=== PATIENT | male | born 1975 | race Caucasian/White ===

== ENCOUNTER 2020-11-28 06:11 | Outpatient (REF) | payer OTHER, SELFPAY ==
[2020-11-28 11:54] LABS: Alanine Aminotransferase 27 U/L (0-40); Albumin Level 4.3 g/dL (3.5-5.0); Alkaline Phosphatase 67 U/L (39-117); Anion Gap 14 (12-20); Aspartate Amino Transferase 19 U/L (5-37); Bilirubin Total 0.6 mg/dL (0.0-1.0); Blood Urea Nitrogen 15 mg/dL (9-16); Calcium 8.9 mg/dL (8.4-10.2); Carbon Dioxide 26 mmol/L (22-29); Chloride 103 mmol/L (96-108); Cholesterol 150 mg/dL; Estimated Glomerular Filt Rate > 60; Glucose Fasting 84 mg/dL (60-99); HDL Cholesterol 49 mg/dL; LDL Cholesterol Calculated 86 mg/dl; Potassium 4.6 mmol/l (3.3-5.1); Sodium 138 mmol/L (135-145); Total Protein 7.1 g/dL (6.5-8.0); Triglycerides 77 mg/dL
[2020-11-28 12:21] LABS: TSH reflex Free T4 1.13 mIU/mL (0.32-4.0)
== END 2020-11-28 06:12 | disposition home or self-care (01) ==
LOC: HO.HMGCLDS 06:11
PROVIDERS: PCP Nurse Practitioner Family; Visit Provider Nurse Practitioner Family
DX: Z00.00 Encounter for general adult medical examination without abnormal findings (principal)
CPT/HCPCS: 36415; 80053; 80061; 84443

== ENCOUNTER 2021-11-25 06:04 | Outpatient (REF) | payer OTHER, SELFPAY ==
[2021-11-25 11:35] LABS: Appearance Urine CLEAR; Color Urine YELLOW; Glucose Urine UA NEG (NEG); Leukocyte Esterase Urine NEG (NEG); Nitrite Urine NEG (NEG); Urine Blood NEG (NEG); Urine Ketones NEG (NEG); Urine Protein NEG (NEG-TRACE)
[2021-11-25 12:08] LABS: Alanine Aminotransferase 32 U/L (0-40); Albumin Level 4.3 g/dL (3.5-5.0); Alkaline Phosphatase 71 U/L (39-117); Anion Gap 13 (12-20); Aspartate Amino Transferase 22 U/L (5-37); Bilirubin Total 0.7 mg/dL (0.0-1.0); Blood Urea Nitrogen 12 mg/dL (9-16); Calcium 9.5 mg/dL (8.4-10.2); Carbon Dioxide 26 mmol/L (22-29); Chloride 101 mmol/L (96-108); Cholesterol 139 mg/dL; Estimated Glomerular Filt Rate > 60; Glucose Fasting 90 mg/dL (60-99); HDL Cholesterol 47 mg/dL; LDL Cholesterol Calculated 77 mg/dl; Potassium 4.2 mmol/L (3.3-5.1); Sodium 136 mmol/L (135-145); Total Protein 7.4 g/dL (6.5-8.0); Triglycerides 76 mg/dL
[2021-11-25 12:10] LABS: TSH reflex Free T4 1.08 uIU/mL (0.32-4.0)
== END 2021-11-25 06:05 | disposition home or self-care (01) ==
LOC: HO.HMGCLDS 06:04
PROVIDERS: Visit Provider Nurse Practitioner Family
DX: Z00.00 Encounter for general adult medical examination without abnormal findings (principal)
CPT/HCPCS: 36415; 80053; 80061; 81003; 84443

== ENCOUNTER 2023-02-08 06:03 | Outpatient (REF) | payer OTHER, SELFPAY ==
[2023-02-08 11:15] LABS: MANUAL DIFF FLAG NO
[2023-02-08 11:51] LABS: Appearance Urine Clear; Color Urine Yellow; Glucose Urine UA Negative (Negative); Leukocyte Esterase Urine Negative (Negative); Nitrite Urine Negative (Negative); PH 6.5 (5.0-9.0); Specific Gravity - Urine 1.015 (1.005-1.025); Urine Blood Negative (Negative); Urine Ketones Negative (Negative); Urine Protein Negative (Neg-Trace)
[2023-02-08 11:57] LABS: Basophils Percent Auto 0.6 % (0-2); Eosinophils Absolute Auto 0.1 X10*3/uL (0.0-0.4); Eosinophils Percent Auto 2.1 % (0-4); Hematocrit 47.3 % (42.0-52.0); Lymphocytes Absolute Auto 1.5 X10*3/uL (1.2-4.9); Lymphocytes Percent Auto 43.5 % (20-40); Mean Corpuscular HGB Conc 33.8 g/dl (31.0-36.0); Mean Corpuscular Hemoglobin 31.7 pg (27.0-33.0); Mean Corpuscular Volume 93.7 fL (80.0-98.0); Mean Platelet Volume 10.1 fL (9.4-12.4); Monocytes Absolute Auto 0.4 X10*3/uL (0.1-1.2); Monocytes Percent Auto 10.6 % (2-11); Neutrophils Absolute Auto 1.5 x10*3/uL (2.0-8.3); Neutrophils Percent Auto 43.2 % (45-73); Platelet Count 174 X10*3/uL (160-400); Red Blood Count 5.05 X10*6/uL (4.60-5.80); Red Cell Distribution Width 12.2 % (11.0-16.0); White Blood Count 3.4 X10*3/uL (4.8-10.8)
[2023-02-08 12:20] LABS: Alanine Aminotransferase 30 U/L (0-40); Albumin Level 4.4 g/dL (3.5-5.0); Alkaline Phosphatase 70 U/L (39-117); Anion Gap 13 (12-20); Aspartate Amino Transferase 21 U/L (5-37); Bilirubin Total 1.2 mg/dL (0.0-1.0); Blood Urea Nitrogen 17 mg/dL (9-16); Calcium 9.2 mg/dL (8.4-10.2); Carbon Dioxide 26 mmol/L (22-29); Chloride 101 mmol/L (96-108); Cholesterol 174 mg/dL; Estimated Glomerular Filt Rate > 60; Glucose Fasting 92 mg/dL (60-99); HDL Cholesterol 54 mg/dL; LDL Cholesterol Calculated 96 mg/dl; Potassium 4.3 mmol/L (3.3-5.1); Sodium 136 mmol/L (135-145); TSH reflex Free T4 1.11 uIU/mL (0.32-4.0); Total Protein 7.1 g/dL (6.5-8.0); Triglycerides 120 mg/dL
== END 2023-02-08 06:04 | disposition home or self-care (01) ==
LOC: HO.HMGCLDS 06:03
PROVIDERS: PCP Nurse Practitioner Family; Visit Provider Nurse Practitioner Family
DX: Z00.00 Encounter for general adult medical examination without abnormal findings (principal)
CPT/HCPCS: 36415; 80053; 80061; 81003; 84443; 85025

== ENCOUNTER 2024-02-01 14:51 | Outpatient (AMB) | payer OTHER, SELFPAY ==
[2024-02-01 14:51] VITALS: BP 130/78; PULSE 82; O2SAT 97; BMI 28.4
--- NOTE | 2024-02-01 14:51 | A.OFFPC_ITS ---
Vital Signs 02/01/24 14:51 Height 6 ft 2 in Weight 221 lb BMI 28.4 BP 130/78 Blood Pressure Location Lt brachial Position Sitting Pulse 82 Pulse Source Pulse Oximeter Pulse Oximetry (%) 97 Oxygen Delivery Method Room Air Intake Visit Reasons: Annual PE Intake Note: pt is here for annual exam, patient had colonoscopy t [facility], needs repeat colonoscopy in 10 years. 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: No Accompanied by: Self / Same As Patient Allergies No Known Allergies [No Known Allergies*] Allergy (Verified 02/01/24 15:05) Medication List - Last Reconciled 02/01/24 by DARWIN Talbert ascorbic acid (vitamin C) (Vitamin C) 500 mg PO DAILY magnesium 200 mg PO DAILY multivitamin 1 tab PO DAILY Tobacco use date assessed: 02/01/24 Dental Screening Dental Screen Date: 02/01/24 Did you have a dental visit in the last 12 months?: Yes Did you have a dental problem in the last 6 months where you did not have access to dental care?: No Was dental information given to patient?: Patient has dentist HPI Annual PE HPI Details Pt is here for a PE. Will order labs. Pt had a colonoscopy in August of 2023. Will track down report. [facility] Medical History Lumbar degenerative disc disease Lumbar radiculopathy Surgical History No pertinent past surgical history Family History Father Myocardial infarction Mother Diabetes mellitus Brother No problems noted. Sister No problems noted. Social History Housing: House Alcohol intake: current Alcohol intake frequency: 0-2 drinks per day Alcohol type: beer and hard liquor Patient Tobacco Use Status: Former Tobacco user (6 months ago ) Tobacco use type: Cigarette e-Cigarette/Vaping Use: Never Used Second Hand Smoke Exposure: No service: No Current occupational status: employed Current occupation: [employer] Current occupational exposures/hazards: No Cognitive needs: No Hearing needs: No Vision needs: No Questionnaire PHQ-9 Over the last 2 weeks, how often have you been bothered by any of the following problems? 1. Little interest or pleasure in doing things: not at all 2. Feeling down, depressed, or hopeless: not at all 3. Trouble falling or staying asleep, or sleeping too much: not at all 4. Feeling tired or having little energy: not at all 5. Poor appetite or overeating: not at all 6. Feeling bad about yourself - or that you are a failure or have let yourself or your family down: not at all 7. Trouble concentrating on things, such as reading the newspaper or watching television: not at all 8. Moving or speaking so slowly that other people could have noticed. Or the opposite - being so fidgety or restless that you have been moving around a lot more than usual: not at all 9. Thoughts that you would be better off or of hurting yourself in some way: not at all Total score: 0 Depression Screening Interpretation: Negative Depression Screening Done: Yes 85025 - PHQ-9 Billing: Yes Source: Developed by Drs. Lit Lombardi, Nimo Dougherty, Sanford Herman and colleagues, with an educational nora from [employer]. Thrive Questionnaire Date Thrive assessed: 02/01/24 I am a: Patient What is your living situation today?: I have a steady place to live Within the past 12 months, did the food you bought not last and you didn't have the money to get more?: Never true Within the past 12 months, did you worry whether your food would run out before you got money to buy more?: Never true Do you have trouble paying for medicines?: No Do you have trouble getting transportation to medical appointments?: No Do you have trouble paying your heating and electricity bill?: No Do you have trouble taking care of your child, family member or friend?: No Do you have trouble with day-to-day activities such as bathing, preparing meals, shopping, managing finances, etc.?: No Are you currently unemployed and looking for a job?: No Are you interested in more education?: No Please select the resources that you would like help with: None Currently or been in a relationship where the following occur: no concerns reported THRIVE Score: 0 AUDIT C Alcohol Use Questionnaire (AUDIT-C) 1. How often do you have a drink containing alcohol?: 2-3 times a week 2. How many drinks containing alcohol do you have on a typical day when you are drinking?: 1 or 2 3. How often do you have six or more drinks on one occasion?: Never Total Score: 3 Score Reviewed/Action Taken: Yes ROSA-7 AMB Questionnaire ROSA-7 Date ROSA - 7 assessed: 02/01/24 Feeling nervous, anxious, or on edge: 0 = Not at all Not being able to stop or control worryin = Not at all Worrying too much about different things: 0 = Not at all Trouble relaxin = Not at all Being so restless that it is hard to sit still: 0 = Not at all Becoming easily annoyed or irritable: 0 = Not at all Feeling afraid as if something awful might happen: 0 = Not at all Total ROSA-7 score (0-4 normal; 5-9 mild; 10-14 moderate; 15-21 severe): 0 Source: Developed by Drs. Lit Lombardi, Nimo Dougherty, Sanford Herman and colleagues, with an educational nora from [employer]. ROSA-7 Assessment Billing ROSA-7 Assessment Tool: ROSA-7 Assessment 72778 Review of Systems Const Denies chills and Denies fever(s) Eyes Denies blurry vision ENT Denies vertigo, Denies dizziness and Denies sore throat Card Denies chest pain at rest, Denies chest pain with activity, Denies diaphoresis, Denies dyspnea and Denies dyspnea on exertion Resp Denies cough, Denies dyspnea, Denies dyspnea on exertion and Denies wheezing GI Denies abdominal pain, Denies melena, Denies hematochezia, Denies constipation, Denies diarrhea and Denies loose stools Denies hematuria Musc Denies numbness and Denies tingling Skin/Breast Denies lesions Neuro Denies vertigo, Denies dizziness, Denies numbness and Denies tingling Psych Denies anxiety, Denies depression, Denies homicidal ideation, Denies suicidal ideation and Denies other (substance abuse) Aller/Immun Denies wheezing Physical exam (Primary Care) Vital Signs: Last Vital Signs Pulse 82 02/01/24 14:51 BP 130/78 02/01/24 14:51 Pulse Ox 97 02/01/24 14:51 Oxygen Delivery Method Room Air 02/01/24 14:51 BMI result Body Mass Index 28.4 Tobacco/Smoking Status: Tobacco use Status Tobacco use date assessed 02/01/24 02/01/24 14:52 Patient Tobacco Use Status Former Tobacco user (6 02/01/24 14:52 months ago ) Tobacco use type Cigarette 02/01/24 14:52 e-Cigarette/Vaping Use Never Used 02/01/24 14:52 PHQ-9: PHQ-9 Score PHQ-9: Total score 0 02/01/24 15:14 Depression Screening Interpretation: Negative Thrive Assessment: Date of Thrive Assessment Date Thrive assessed 02/01/24 02/01/24 14:52 Currently or been in a relationship where the following occur: no concerns reported Const General: cooperative Nutritional Appearance: well nourished Orientation/consciousness: patient oriented x3 HENMT Head: Yes normal to inspection, Yes normocephalic and Yes atraumatic Ears: TM's normal bilaterally Eyes General: appearance normal, both eyes and all related structures Alignment and Position: alignment normal and position normal Neck Neck: Yes normal visual inspection and Yes no lymphadenopathy Thyroid: Thyroid normal Resp Effort & Inspection: normal respiratory effort Auscultation: clear to auscultation bilaterally Cardio Rate: regular rate Rhythm: regular rhythm Heart sounds: S1 normal heart sound present, S2 normal heart sound present and no murmurs GI Palpation (GI): Soft to palpation and nontender Auscultation: normal bowel sounds Male General Exam: Yes normal external exam Penis: normal penis Scrotum: scrotum normal, testes descended bilaterally and no inguinal hernias Testes: no testicular mass Skin Other: left upper temporal region with skin colored growth Rashes: no rashes Neuro General: patient oriented x3, moves all extremities, no focal motor deficits and deep tendon reflexes 2+ bilaterally Romberg Test: Negative Psych Appearance: grossly normal Mental Status: mental status grossly normal Speech and movement: Normal speech and movement present Affect: normal affect Attitude: cooperative Thought process: Normal thought process present Thought content: Normal thought content present Insight: Good insight present (Psych) Judgement: Good judgement present (Psych) Assessment and Plan Assessment & Plan (1) Physical exam: Code(s): Z00.00 - Encounter for general adult medical examination without abnormal findi ngs Plan: Labs ordered Plan The patient agreed to the use of a faculty i on call medical assistant for this encounter. Scribed for DARWIN Peterson by Mirlande Short faculty i on call medical assistant, on 02/01/2024 at 15:05 EST. Orders: Orders TSH reflex Free T4 Today Z00.00 - Encounter for general adult medical examination without abnormal findings Complete Blood Count Auto Diff Today Z00.00 - Encounter for general adult medical examination without abnormal findings Comprehensive [place]. Panel Fast Today Z00.00 - Encounter for general adult medical examination without abnormal findings UA CC w/rflx Micro + Cult Today Z00.00 - Encounter for general adult medical examination without abnormal findings Lipid Panel Today Z00.00 - Encounter for general adult medical examination without abnormal findings Coding Level of Care Code Est Pt Prev Care 40-64y(39133) Diagnoses Physical exam Z00.00 Additional Codes ROSA-7 Assessment Billing - ROSA-7 Assessment Tool: RSOA-7 Assessment 97935 ([id number])
== END 2024-02-01 15:12 | disposition home or self-care (01) ==
PROVIDERS: Visit Provider Nurse Practitioner Family
DX: Z00.00 Encounter for general adult medical examination without abnormal findings (principal)
CPT/HCPCS: 99396

== ENCOUNTER 2024-02-03 06:06 | Outpatient (REF) | payer OTHER, SELFPAY ==
[2024-02-03 10:08] LABS: MANUAL DIFF FLAG NO
[2024-02-03 10:20] LABS: Appearance Urine Clear; Color Urine Yellow; Glucose Urine UA Negative (Negative); Leukocyte Esterase Urine Negative (Negative); Nitrite Urine Negative (Negative); Urine Blood Negative (Negative); Urine Ketones Negative (Negative); Urine Protein Negative (Neg-Trace)
[2024-02-03 10:32] LABS: Basophils Percent Auto 0.7 % (0-2); Eosinophils Absolute Auto 0.1 X10*3/uL (0.0-0.4); Eosinophils Percent Auto 2.1 % (0-4); Hematocrit 46.9 % (42.0-52.0); Hemoglobin 16.3 g/dl (14.0-18.0); Lymphocytes Absolute Auto 1.4 X10*3/uL (1.2-4.9); Lymphocytes Percent Auto 46.2 % (20-40); Mean Corpuscular HGB Conc 34.8 g/dl (31.0-36.0); Mean Corpuscular Volume 92.1 fL (80.0-98.0); Mean Platelet Volume 9.9 fL (9.4-12.4); Monocytes Absolute Auto 0.4 X10*3/uL (0.1-1.2); Neutrophils Absolute Auto 1.1 x10*3/uL (2.0-8.3); Platelet Count 180 X10*3/uL (160-400); Red Blood Count 5.09 X10*6/uL (4.60-5.80); Red Cell Distribution Width 12.3 % (11.0-16.0); White Blood Count 2.9 X10*3/uL (4.8-10.8)
[2024-02-03 11:06] LABS: Alanine Aminotransferase 24 U/L (0-40); Albumin Level 4.4 g/dL (3.5-5.0); Alkaline Phosphatase 73 U/L (39-117); Anion Gap 12 (12-20); Aspartate Amino Transferase 20 U/L (5-37); Bilirubin Total 0.8 mg/dL (0.0-1.0); Blood Urea Nitrogen 12 mg/dL (9-16); Calcium 9.2 mg/dL (8.4-10.2); Carbon Dioxide 25 mmol/L (22-29); Chloride 100 mmol/L (96-108); Cholesterol 152 mg/dL (<200); Estimated Glomerular Filt Rate > 60; Glucose Fasting 88 mg/dL (60-99); HDL Cholesterol 53 mg/dL (>40); LDL Cholesterol Calculated 82 mg/dL (<100); Potassium 4.2 mmol/L (3.3-5.1); Sodium 133 mmol/L (135-145); Total Protein 7.5 g/dL (6.5-8.0); Triglycerides 86 mg/dL (<150)
== END 2024-02-03 06:07 | disposition home or self-care (01) ==
LOC: HO.HMGCLDS 06:06
PROVIDERS: PCP Nurse Practitioner Family; Visit Provider Nurse Practitioner Family
DX: Z00.00 Encounter for general adult medical examination without abnormal findings (principal); Z13.6 Encounter for screening for cardiovascular disorders
CPT/HCPCS: 36415; 80053; 80061; 81003; 84443; 85025

== ENCOUNTER 2025-03-08 15:51 | Outpatient (AMB) | payer OTHER, SELFPAY ==
--- NOTE | 2025-03-08 15:55 | MHC.PC.OV ---
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 Accompanied by: Self / Same As Patient Allergies No Known Allergies [No Known Allergies*] Allergy (Verified 03/08/25 15:58) Medication List - Last Reconciled 03/08/25 by DARWIN Talbert ascorbic acid (vitamin C) (Vitamin C) 500 mg PO DAILY magnesium 200 mg PO DAILY multivitamin 1 tab PO DAILY Tobacco use date assessed: 03/08/25 Dental Screening Dental Screen Date: 03/08/25 Did you have a dental visit in the last 12 months?: Yes Did you have a dental problem in the last 6 months where you did not have access to dental care?: No Was dental information given to patient?: Patient has dentist HPI Annual PE - see comments HPI Details History of Present Illness The patient is a 49-year-old male presenting with a request for a physical examination. He denied any symptoms typically associated with respiratory or urinary infections, as well as gastrointestinal disturbances. Furthermore, he reported a good overall health perception. Specific details regarding previous conditions or ongoing treatment were not mentioned. He acknowledged the requirement to fast prior to completing laboratory tests, with no further elaboration on prior medical evaluations or treatment history provided during this visit. Health Maintenance Social History Review of Systems - Cardiovascular: Denies chest pain - Respiratory: Denies shortness of breath - General: Denies fever and chills - Genitourinary: Denies urinary symptoms - Gastrointestinal: Denies constipation and diarrhea Physical Exam General: Cooperative, healthy appearing, comfortable, no acute distress and well developed Orientation: Patient oriented x3 Limitations: No limitations Head: Normal to inspection Ears: Hearing grossly normal bilaterally Nose: Normal external nose present Face and sinus: Normal facial exam Eyes: Appearance normal, both eyes and all related structures Neck: Normal visual inspection and Yes full ROM Respiratory: Normal respiratory effort and able to speak in complete sentences. Clear to auscultation bilaterally Cardiovascular: Regular rate and rhythm. Normal S1 and S2 GI: Normal to inspection. Soft to palpation and nontender Skin: No rashes or lesions noted Neuro: Patient oriented x3 Extremities: Normal to inspection Results Plan The patient will proceed with fasting as required for the laboratory tests previously ordered. The conversation focused solely on the examination and the necessity of adherence to fasting instructions to facilitate correct lab results. No additional treatment, diagnostics, or specific follow-ups were outlined during the consultation. Discussion Notes During our discussion, I emphasized the importance of fasting prior to the laboratory tests for accurate evaluation. No specific diagnoses, risks, benefits, or future procedures were discussed beyond the standard wellness evaluation. We focused on ensuring the patient understands the fasting requirement, and no consent issues or comprehensive management discussions were necessary as the visit was primarily for routine evaluation. Patient Instructions - Fast for the laboratory tests as instructed. - Follow up with appointments or health checks according to previous instructions, if applicable. [facility] Medical History Lumbar degenerative disc disease Lumbar radiculopathy Surgical History No pertinent past surgical history Family History Father Myocardial infarction Mother Diabetes mellitus Brother No problems noted. Sister No problems noted. Social History Housing: House Alcohol intake: current Alcohol intake frequency: 0-2 drinks per day Alcohol type: beer and hard liquor Patient Tobacco Use Status: Former Tobacco user (6 months ago ) Tobacco use type: Cigarette e-Cigarette/Vaping Use: Never Used Second Hand Smoke Exposure: No service: No Current occupational status: employed Current occupation: [employer] Current occupational exposures/hazards: No Cognitive needs: No Hearing needs: No Vision needs: No Questionnaire PHQ-9 Over the last 2 weeks, how often have you been bothered by any of the following problems? 1. Little interest or pleasure in doing things: not at all 2. Feeling down, depressed, or hopeless: not at all 3. Trouble falling or staying asleep, or sleeping too much: not at all 4. Feeling tired or having little energy: not at all 5. Poor appetite or overeating: not at all 6. Feeling bad about yourself - or that you are a failure or have let yourself or your family down: not at all 7. Trouble concentrating on things, such as reading the newspaper or watching television: not at all 8. Moving or speaking so slowly that other people could have noticed. Or the opposite - being so fidgety or restless that you have been moving around a lot more than usual: not at all 9. Thoughts that you would be better off or of hurting yourself in some way: not at all Total score: 0 Depression Screening Interpretation: Negative Depression Screening Done: Yes 82859 - PHQ-9 Billing: Yes Source: Developed by Drs. Lit Lombardi, Nimo Dougherty, Sanford Herman and colleagues, with an educational nora from [employer]. Thrive Questionnaire Date Thrive assessed: 03/08/25 I am a: Patient What is your living situation today?: I have a steady place to live Within the past 12 months, did the food you bought not last and you didn't have the money to get more?: Never true Within the past 12 months, did you worry whether your food would run out before you got money to buy more?: Never true Do you have trouble paying for medicines?: No Do you have trouble getting transportation to medical appointments?: No Do you have trouble paying your heating and electricity bill?: No Do you have trouble taking care of your child, family member or friend?: No Do you have trouble with day-to-day activities such as bathing, preparing meals, shopping, managing finances, etc.?: No Are you currently unemployed and looking for a job?: No Are you interested in more education?: No Please select the resources that you would like help with: None Currently or been in a relationship where the following occur: No concerns reported THRIVE Score: 0 AUDIT C Alcohol Use Questionnaire (AUDIT-C) 1. How often do you have a drink containing alcohol?: 2-3 times a week 2. How many drinks containing alcohol do you have on a typical day when you are drinking?: 1 or 2 3. How often do you have six or more drinks on one occasion?: Never Total Score: 3 Score Reviewed/Action Taken: Yes ROSA-7 AMB Questionnaire ROSA-7 Date ROSA - 7 assessed: 03/08/25 Feeling nervous, anxious, or on edge: 0 = Not at all Not being able to stop or control worryin = Not at all Worrying too much about different things: 0 = Not at all Trouble relaxin = Not at all Being so restless that it is hard to sit still: 0 = Not at all Becoming easily annoyed or irritable: 0 = Not at all Feeling afraid as if something awful might happen: 0 = Not at all Total ROSA-7 score (0-4 normal; 5-9 mild; 10-14 moderate; 15-21 severe): 0 Source: Developed by Drs. Lit Lombardi, Nimo Dougherty, Sanford Herman and colleagues, with an educational nora from [employer]. ROSA-7 Assessment Billing ROSA-7 Assessment Tool: ROSA-7 Assessment 26989 Physical exam (Primary Care) Vital Signs: Last Vital Signs Pulse 86 03/08/25 15:58 BP 130/76 03/08/25 15:58 Pulse Ox 98 03/08/25 15:58 BMI result Body Mass Index 28.8 Tobacco/Smoking Status: Tobacco use Status Tobacco use date assessed 03/08/25 03/08/25 16:01 Patient Tobacco Use Status Former Tobacco user (6 03/08/25 15:55 months ago ) Tobacco use type Cigarette 03/08/25 15:55 e-Cigarette/Vaping Use Never Used 03/08/25 15:55 PHQ-9: PHQ-9 Score PHQ-9: Total score 0 03/08/25 16:01 Depression Screening Interpretation: Negative Thrive Assessment: Date of Thrive Assessment Date Thrive assessed 03/08/25 03/08/25 16:01 Currently or been in a relationship where the following occur: No concerns reported Coding Level of Care Code Est Pt Prev Care 40-64y(13255) Diagnoses Physical exam Z00.00 Screening for prostate cancer Z12.5 Additional Codes ROSA-7 Assessment Billing - ROSA-7 Assessment Tool: ROSA-7 Assessment 23517 ([id number]) PHQ-9 - 44894 - PHQ-9 Billing: Yes ([id number]) Assessment & Plan Assessment & Plan (1) Physical exam: Code(s): Z00.00 - Encounter for general adult medical examination without abnormal findings Category: Medical (2) Screening for prostate cancer: Code(s): Z12.5 - Encounter for screening for malignant neoplasm of prostate Category: Medical Plan . Orders: Orders TSH reflex Free T4 Today Z00.00 - Encounter for general adult medical examination without abnormal findings Complete Blood Count Auto Diff Today Z00.00 - Encounter for general adult medical examination without abnormal findings Comprehensive [place]. Panel Fast Today Z00.00 - Encounter for general adult medical examination without abnormal findings UA CC w/rflx Micro + Cult Today Z00.00 - Encounter for general adult medical examination without abnormal findings Lipid Panel Today Z00.00 - Encounter for general adult medical examination without abnormal findings Prostate Specific Antigen Scr Today Z12.5 - Encounter for screening for malignant neoplasm of prostate
[2025-03-08 15:58] VITALS: BP 130/76; PULSE 86; O2SAT 98; BMI 28.8
--- OUTSIDE RECORDS SUMMARY | 2025-03-08 17:25 | XMS_ITS | Encounter Summary ---
Author Organization [facility] Address [address] [place] [phone] Phone Care Team Providers Care Child Support Officer Name Role Phone Unknown, Unknown Primary Care Provider Carlos Monroe MD Primary Care Provider [phone] Kwan Ralph NP Primary Care Provider + Reason for Referral * - Closed Specialty Diagnoses / Procedures Referred By Allison diaz Referred To Contact Diagnoses Right ankle swelling Chronic pain of right ankle Procedures NM Bone Flow 3 Phase Patrizia Messina NP [address] [place] [phone] Referral ID Status Reason Start Date Expiration Date Visits Re quested Visits Authorized [id number] Closed 08/25/2018 08/25/2019 1 1 Encounter Details Date Type Department Care Team (Late st Contact Info) Description 08/24/2018 Ancillary Orders Virtual Department [address] [place] [address] Patrizia Messina NP [address] [place] [phone] [email or web address] [employer] Right ankle swelling; Chronic pain of right ankle Social History Tobacco Use Types Packs/Day Years Used Date Smoking Tobacco: Never Assessed Sex and Gender Information Value Date Recorded Sex Assigned at Not on file Gender Identity Not on file Sexual Orientation Not on file documented as of this encounter Plan of Treatment Not on file documented as of this encounter Results * NM Bone Flow 3 Phase (08/29/2018 1:16 PM EDT) Anatomical Region Laterality Modality Shoulder Right, Shoulder Lef t, Arm Left, Arm Right, Elbow Left, Elbow Right, Forearm Left, Forearm Right, Wrist Right, Wrist Left, Hand Left, Hand Right, Hip Left, Hip Right, Hip Bilateral, Thigh Left, Thigh Right, Knee Left, Knee Right, Knee Bilateral, Leg Left, Leg Right, Ankle Left, Ankle Right, Foot Left, Foot Right, Pelvis Nucle ar Medicine 08/29/2018 3:45 PM EDT Impressions 08/29/2018 5:21 PM EDT Increased activity lateral ankle on all 3 phases, more so on the blood pool than on the delayed bone scan. This suggests a primary soft tissue/tendon pathology, specifically peroneal tendinitis. POS [id number] Narrative 08/29/2018 5:21 PM EDT HISTORY: Lateral right ankle pain x2 years. No recent acute injury. No known malignancy or prior bone surgery. X-ray demonstrated soft tissue swelling 06/2018. COMPARISON: ??None. The prior x-rays are not available for review. Technique: Standard three-phase bone scan with blood flow, blood pool and delayed phase imaging. DOSE: ??26 mCi Tc 99m medronate IV. NUCLEAR MEDICINE THREE PHASE BONE SCAN FINDINGS: Blood flow images demonstrate increased blood flow to the right lateral ankle. Blood pool images demonstrate increased blood flow adjacent to the right fibula. It is in a crescentic shape and would correspond anatomically to the course of the peroneal tendons. ??Mild increased blood flow to the midfoot of both feet. Delayed phase images show focal increased uptake in the distal fibula, with the bone scan activity smaller in size and not as hot as the blood pool activity. Symmetric increased uptake within the mid foot tarsal bones, which is characteristically degenerative. Procedure Note Marian Praikh MD - 08/29/2018 HISTORY: Lateral right ankle pain x2 years. No recent acute injury. Noknown malignancy or prior bone surgery. X-ray demonstrated soft tissueswelling 06/2018. COMPARISON: None. The prior x-rays are not available for review. Technique: Standard three-phase bone scan with blood flow, blood pool anddelayed phase imaging. DOSE: 26 mCi Tc 99m medronate IV. NUCLEAR MEDICINE THREE PHASE BONE SCAN FINDINGS: Blood flow images demonstrate increased blood flow to the right lateralankle. Blood pool images demonstrate increased blood flow adjacent to the rightfibula. It is in a crescentic shape and would correspond anatomically tothe course of the peroneal tendons. Mild increased blood flow to themidfoot of both feet. Delayed phase images show focal increased uptake in the distal fibula,with the bone scan activity smaller in size and not as hot as the bloodpool activity. Symmetric increased uptake within the mid foot tarsal bones, which ischaracteristically degenerative. IMPRESSION: Increased activity lateral ankle on all 3 phases, more so on the bloodpool than on the delayed bone scan. This suggests a primary softtissue/tendon pathology, specifically peroneal tendinitis. POS [id number] Patrizia Messina NP IMG NM BONE SCAN documented in this encounter Visit Diagnoses Diagnosis Right ankle swelling Effusion of ankle and foot joint Chronic pain of right ankle Right ankle swelling Effusion of ankle and foot joint Chronic pain of right ankle documented in this encounter Care Teams Child Support Officer Relationship Specialty Start Date End Date Unknown, Unknown, PCP - General 08/24/18 08/28/18 Carlos Jovel MD [email or web address] PCP - General Internal Medicine 08/29/18 02/01/23 Kwan Ralph NP [address] [place] [id number] PCP - General Nurse Practitioner 02/02/23 documented as of this encounter Additional Source Comments The information contained in this document represents components of the legal health record. It is not the complete legal health record.[facility]
--- OUTSIDE RECORDS SUMMARY | 2025-03-08 17:25 | XMS_ITS | Clinical Summary ---
Author Organization [facility] Address [address] [place] [phone] Phone Care Team Providers Care Tearer Name Role Phone Kwan Ralph NP Primary Care Provider + Allergies No known active allergies Medications Medication Sig Dispensed Refills Start Date End Date Status multivitamin-minerals- lutein (CENTRUM SILVER) Tab Take 1 tablet by mouth daily. Active naproxen sodium (ALEVE) 220 MG tablet Take 220 mg by mouth 2 (two) times a day with meals. Active Active Problems Problem Noted Date Diagnosed Date Asthma 05/03/2023 05/03/2023 Healthy adult 05/03/2023 05/03/2023 Migraine without aura and responsive to treatmen t 05/03/2023 05/03/2023 Family History Medical History Relation Comments CV disease Father 2 Hypertension Father 2 Diabetes mellitus Mother 2 Relation Status Comments Father 1 Alive Father 2 Mother 1 Alive Mother 2 Social History Tobacco Use Types Packs/Day Years Used Date Smoking Tobacco: Former Cigarettes 0 11/08/2020 - 11/08/2022 Smokeless Tobacco: Never Tobacco Cessation:Counseling Given: Not Answered Alcohol Use Standard Drinks/Week Comments Yes 14 (1 standard drink = 0.6 oz pu re alcohol) 2 per day Education Answer Date Recorded Are you interested in more education? Not on guadalupe e 03/05/2023 Are you concerned about learning? Not on file 03/05/2023 No 03/05/2023 No 03/05/2023 Digital Access Answer Date Recorded No 04/05/2023 No 04/05/2023 Reliable internet access at home? Not on file 04/05/2023 Device with a working camera? Not on file Intimate Partner Violence Answer Date R ecorded Are you denied basic needs s uch as food, clothing, or medical care? No 08/20/2023 In the past 12 months have y ou been in a relationship with a person who hurts, threatens, or tries to control you? No 08/20/2023 Are you denied basic needs s uch as food, clothing, or medical care? No 08/20/2023 In the past 12 months have y ou been in a relationship with a person who hurts, threatens, or tries to control you? No 08/20/2023 Sex and Gender Information Value Date Recorded Sex Assigned at Not on file Gender Identity Not on file Sexual Orientation Not on file Last Filed Vital Signs Vital Sign Reading Time Taken Comments Blood Pressure 129/93 08/20/2023 8:16 AM EDT Pulse 65 08/20/2023 8:16 AM EDT Temperature 36.8 ??C (98.2 ??F) 08/20/2023 8:05 AM ED T Respiratory Rate 20 08/20/2023 8:16 AM EDT Oxygen Saturation 98% 08/20/2023 8:16 AM EDT Inhaled Oxygen Concentration - - Weight 97.5 kg (215 lb) 08/19/2023 12:00 PM EDT Height 188 cm (6' 2 ) 08/19/2023 12:00 PM EDT Body Mass Index 27.6 08/19/2023 12:00 PM EDT Plan of Treatment Health Maintenance Due Date Last Done Comments DEPRESSION SCREENING 1988 SMOKING Hx and SMOKELESS TOB ACCO SCREENING 1989 HEPATITIS C SCREENING 1994 HIV ONE-TIME SCREENING (18-6 5 YEARS) 1994 PNEUMOCOCCAL VACCINES (0-49 years) (1 of 2 - PCV) 1995 SCREENING FOR DIABETES 2011 LIPID PANEL 10/16/2020 10/16/2015 COLOGUARD 2021 FIT TEST 2021 FOBT 2021 SIGMOIDOSCOPY 2021 VIRTUAL COLONOSCOPY 2021 INFLUENZA VACCINE (#1) 2024 COVID-19 VACCINE (1 - 2023-2 5 season) 2024 Adult Td,Tdap Booster 10/19/2026 10/19/2016 COLONOSCOPY 08/20/2033 08/20/2023 COLORECTAL CANCER SCREENING 08/20/2033 HEPATITIS A VACCINES Aged Out No long er eligible based on patient's age to complete this topic HIB VACCINES Aged Out No longer eligi ble based on patient's age to complete this topic MENINGOCOCCAL VACCINES (ACWY) Aged Out No longer eligible based on patient's age to complete this topic Medical Devices Not on file Procedures Procedure Name Priority Date/Time Associated Diagnosis Comments ENDOSCOPY, COLON 08/20/2023 7:27 AM EDT OUTSIDE LDL Routine 10/16/2015 from Last 3 Months or Most Recently Relevant to Health Maintenance Results * ENDOSCOPY, COLON (08/20/2023 7:27 AM EDT) Narrative Transcriptions Kathy Melendez MD - 08/20/2023 7:27 AM EDT [facility] Patient Name: Farhat Platt Attending MD:: KATHY MELENDEZ MD, Procedure Date: 08/20/2023 7:27 AM Date of : 1975 Age: 48 Admit Type: Outpatient Gender: Male Room: [facility] Referring MD: Kwan Ralph Exam Type: Colonoscopy Indications: Screening for colorectal malignant neoplasm Medications: Monitored Anesthesia Care Procedure: Informed consent was obtained from the patientafter discussion of the indications, limitations, alternatives, benefits, and risks of the procedure. Risks specifically discussed include but are not limited to medication reactions, missed lesions, bleeding, perforation, or the need for emergent surgery. Throughout the procedure, the patient's blood pressure, pulse, end-tidal CO2, and oxygensaturations were monitored continuously. The Olympus adult variable colonoscope [id number] #[id number] was introduced through the anus and advanced to the cecum, identified by the appendiceal orifice, ICvalve and transillumination. The colonoscopy wasperformed without difficulty. The patient tolerated the procedure well. The quality of the bowelpreparation was good. Complications: No immediate complications. Estimated blood loss: Minimal. Findings: The perianal and digital rectal examinations were normal. Pertinent negatives include normal prostate (size, shape, and consistency). The entire examined colon appeared normal on direct and retroflexion views. Impression: - The entire examined colon is normal on direct and retroflexion views. - No specimens collected. Recommendation: - Discharge patient to home. - Resume previous diet. - Continue present medications. - Repeat colonoscopy in 10 years for screening purposes. - Return to my office in 10 years. KATHY MELENDEZ MD 08/20/2023 8:04:42 AM This report has been signed electronically. Number of Addenda: 0 Note Initiated On: 08/20/2023 7:27 AM Procedure Code(s): --- Professional --- 40609, Colonoscopy, flexible; diagnostic, including collection of specimen(s) by brushing or washing, when performed (separateprocedure) --- Technical --- 87094, Colonoscopy, flexible; diagnostic, including collection of specimen(s) by brushing or washing, when performed (separateprocedure) Diagnosis Code(s): --- Professional --- Z12.11, Encounter for screening for malignantneoplasm of colon --- Technical --- Z12.11, Encounter for screening for malignantneoplasm of colon CPT copyright 2021 [employer]. All rights reserved. The codes documented in this report are preliminary and upon public health officer reviewmay be revised to meet current compliance requirements. Procedure Date: 08/20/2023 7:27:[address] [place] [address] Kwan Ralph NP GI PROCEDURE ORD ERABLES * Outside LDL (10/16/2015) LDL - External 80 50 - 250 mg/ml Historical Provider LAB BLOOD ORDERAB LES from Last 3 Months or Most Recently Relevant to Health Maintenance Care Teams Tearer Relationship Specialty Start Date End Date Kwan Ralph NP [address] [place] [address] PCP - General Nurse Practitioner 02/02/23 Additional Source Comments The information contained in this document represents components of the legal health record. It is not the complete legal health record.[facility]
--- OUTSIDE RECORDS SUMMARY | 2025-03-08 17:25 | XMS_ITS | Encounter Summary ---
Author Organization [facility] Address [address] [place] [address] Phone Care Team Providers Care Network Technology Instructor Name Role Phone Kwan Ralph SIGNAL OPERATOR TECHNICAL Primary Care Provider + Encounter Details Date Type Department Care Team (Late st Contact Info) Description 08/20/2023 Procedure Pass [facility] Endoscopy Admitting Dept Virtual Department [address] [place] [address] Social History Tobacco Use Types Packs/Day Years Used Date Smoking Tobacco: Former Cigarettes 0 11/08/2020 - 11/08/2022 Smokeless Tobacco: Never Alcohol Use Standard Drinks/Week Comments Yes 14 [...] on file documented as of this encounter Visit Diagnoses Not on filedocumented in this encounter Care Teams Network Technology Instructor Relationship Specialty Start Date End Date Kwan Ralph NP [address] [place] [address] PCP - General Nurse Practitioner 02/02/23 documented as of this encounter Additional Source Comments The information contained in this document represents components of the legal health record. It is not the complete legal health record.[facility]
== END 2025-03-08 16:13 | disposition home or self-care (01) ==
LOC: HO.HMCC 15:52
PROVIDERS: PCP Nurse Practitioner Family; Visit Provider Nurse Practitioner Family
DX: Z00.00 Encounter for general adult medical examination without abnormal findings (principal); Z12.5 Encounter for screening for malignant neoplasm of prostate

== ENCOUNTER → 2025-03-08 15:51 | Outpatient (BNVA) | payer OTHER, SELFPAY | PROVIDERS: PCP Nurse Practitioner Family; Visit Provider Nurse Practitioner Family | DX: Z00.00 Encounter for general adult medical examination without abnormal findings (principal) | CPT/HCPCS: 96127 ==

== ENCOUNTER 2025-03-16 06:12 | Outpatient (REF) | payer OTHER, SELFPAY ==
--- OUTSIDE RECORDS SUMMARY | 2025-03-16 06:14 | XMS_ITS | Encounter Summary ---
Author Organization [facility] Address [address] [place] [address] Phone Care Team Providers Care Caterpillar Driver Name Role Phone Kwan Ralph COMPLIANCE DIRECTOR Primary Care Provider + Encounter Details Date Type Department Care Team (Late st Contact Info) Description 08/20/2023 Procedure Pass [facility] Endoscopy Admitting Dept Virtual Department [address] [place] [address] Social History Tobacco Use Types Packs/Day Years [...] on filedocumented in this encounter Care Teams Caterpillar Driver Relationship Specialty Start Date End Date Kwan Ralph NP [address] [place] [address] PCP - General Nurse Practitioner 02/02/23 documented as of this encounter Additional Source Comments The information contained in this document represents components of the legal health record. It is not the complete legal health record.[facility]
--- OUTSIDE RECORDS SUMMARY | 2025-03-16 06:14 | XMS_ITS | Clinical Summary ---
Author Organization [facility] Address [address] [place] [address] Phone Care Team Providers Care Power Hammer Operator Name Role Phone Kwan Ralph NP Primary [...] Melendez MD - 08/20/2023 7:27 AM EDT [facility] Patient Name: Farhat Platt Attending MD:: KATHY MELENDEZ MD, Procedure Date: 08/20/2023 7:27 AM Date of : 1975 Age: 48 Admit Type: Outpatient Gender: Male Room: [facility] Referring MD: Kwan Ralph Exam Type: Colonoscopy [...] monitored continuously. The Olympus adult variable colonoscope [id number] #[id number] was introduced through the anus and [...] 7:27 AM Procedure Code(s): --- Professional --- 16285, Colonoscopy, flexible; diagnostic, including collection of specimen(s) by brushing or washing, when performed (separateprocedure) --- Technical --- 49908, Colonoscopy, flexible; diagnostic, including collection of specimen(s) by brushing or washing, when performed (separateprocedure) Diagnosis Code(s): --- Professional --- Z12.11, Encounter for screening for malignantneoplasm of colon --- Technical --- Z12.11, Encounter for screening for malignantneoplasm of colon CPT copyright 2021 [employer]. All rights reserved. The codes documented in this report are preliminary and upon commercial production editor reviewmay be revised to meet current compliance requirements. Procedure Date: 08/20/2023 7:27:[address] [place] [address] Kwan Ralph NP GI PROCEDURE ORD ERABLES * Outside LDL (10/16/2015) LDL - External 80 50 - 250 mg/ml Historical Provider LAB BLOOD ORDERAB LES from Last 3 Months or Most Recently Relevant to Health Maintenance Care Teams Power Hammer Operator Relationship Specialty Start Date End Date Kwan Ralph NP [address] [place] [address] PCP - General Nurse Practitioner 02/02/23 Additional Source Comments The information contained in this document represents components of the legal health record. It is not the complete legal health record.[facility]
--- OUTSIDE RECORDS SUMMARY | 2025-03-16 06:14 | XMS_ITS | Encounter Summary ---
Author Organization [facility] Address [address] [place] [address] Phone Care Team Providers Care Associate Professor Of History Name Role Phone Unknown, Unknown Primary Care Provider Carlos Monroe MD Primary Care Provider [phone]- [phone] Kwan Ralph NP Primary Care Provider + Reason for Referral * - Closed Specialty Diagnoses / Procedures Referred By Allison diaz Referred To Contact Diagnoses Right ankle swelling Chronic pain of right ankle Procedures NM Bone Flow 3 Phase Patrizia Messina NP [address] [place] [phone] Referral ID Status Reason Start Date Expiration Date Visits Re quested Visits Authorized [id number] Closed 08/25/2018 08/25/2019 1 1 Encounter Details Date Type Department Care Team (Late st Contact Info) Description 08/24/2018 Ancillary Orders Virtual Department [address] [place] [address] Patrizia Messina NP [address] [place] [phone] [email or web address] Right ankle swelling; Chronic pain of right [...] soft tissue/tendon pathology, specifically peroneal tendinitis. POS [id number] Narrative 08/29/2018 5:21 PM EDT HISTORY: Lateral [...] which is characteristically degenerative. Procedure Note Marian Parikh MD - 08/29/2018 HISTORY: Lateral right ankle [...] primary softtissue/tendon pathology, specifically peroneal tendinitis. POS [id number] Patrizia Messina NP IMG NM BONE SCAN documented in this encounter Visit Diagnoses Diagnosis Right ankle swelling Effusion of ankle and foot joint Chronic pain of right ankle Right ankle swelling Effusion of ankle and foot joint Chronic pain of right ankle documented in this encounter Care Teams Associate Professor Of History Relationship Specialty Start Date End Date Unknown, Unknown, PCP - General 08/24/18 08/28/18 Carlos Jovel MD [email or web address] PCP - General Internal Medicine 08/29/18 02/01/23 Kwan Ralph NP [address] [place] [address] PCP - General Nurse Practitioner 02/02/23 documented as of this encounter Additional Source Comments The information contained in this document represents components of the legal health record. It is not the complete legal health record.[facility]
[2025-03-16 09:59] LABS: MANUAL DIFF FLAG NO
[2025-03-16 10:00] LABS: Appearance Urine Clear; Color Urine Yellow; Glucose Urine UA Negative (Negative); Leukocyte Esterase Urine Negative (Negative); Nitrite Urine Negative (Negative); PH 7.5 (5.0-9.0); Specific Gravity - Urine <= 1.005 (1.005-1.025); Urine Blood Negative (Negative); Urine Ketones Negative (Negative); Urine Protein Negative (Neg-Trace)
[2025-03-16 10:04] LABS: Basophils Percent Auto 0.8 % (0-2); Eosinophils Absolute Auto 0.2 X10*3/uL (0.0-0.4); Eosinophils Percent Auto 4.7 % (0-4); Hematocrit 46.4 % (42.0-52.0); Hemoglobin 15.9 g/dl (14.0-18.0); Lymphocytes Absolute Auto 1.5 X10*3/uL (1.2-4.9); Lymphocytes Percent Auto 40.6 % (20-40); Mean Corpuscular HGB Conc 34.3 g/dl (31.0-36.0); Mean Corpuscular Hemoglobin 31.8 pg (27.0-33.0); Mean Corpuscular Volume 92.8 fL (80.0-98.0); Mean Platelet Volume 10.4 fL (9.4-12.4); Monocytes Absolute Auto 0.4 X10*3/uL (0.1-1.2); Monocytes Percent Auto 11.1 % (2-11); Neutrophils Absolute Auto 1.5 x10*3/uL (2.0-8.3); Neutrophils Percent Auto 42.8 % (45-73); Platelet Count 182 X10*3/uL (160-400); Red Cell Distribution Width 12.5 % (11.0-16.0); White Blood Count 3.6 X10*3/uL (4.8-10.8)
[2025-03-16 10:34] LABS: Alanine Aminotransferase 28 U/L (0-40); Albumin Level 4.6 g/dL (3.5-5.0); Alkaline Phosphatase 80 U/L (39-117); Anion Gap 11 (12-20); Aspartate Amino Transferase 27 U/L (5-37); Blood Urea Nitrogen 12 mg/dL (9-16); Calcium 9.4 mg/dL (8.4-10.2); Carbon Dioxide 26 mmol/L (22-29); Chloride 99 mmol/L (96-108); Cholesterol 145 mg/dL (<200); Estimated Glomerular Filt Rate > 60; Glucose Fasting 93 mg/dL (60-99); HDL Cholesterol 48 mg/dL (>40); LDL Cholesterol Calculated 84 mg/dL (<100); Potassium 4.1 mmol/L (3.3-5.1); Sodium 132 mmol/L (135-145); Total Protein 7.7 g/dL (6.5-8.0); Triglycerides 66 mg/dL (<150)
[2025-03-16 10:36] LABS: Prostate Specific Antigen Scr 1.64 ng/mL (<0.05-4.0); TSH reflex Free T4 0.62 uIU/mL (0.32-4.0)
== END 2025-03-16 06:13 | disposition home or self-care (01) ==
LOC: HO.HMGCLDS 06:12
PROVIDERS: PCP Nurse Practitioner Family; Visit Provider Nurse Practitioner Family
DX: Z00.00 Encounter for general adult medical examination without abnormal findings (principal); Z12.5 Encounter for screening for malignant neoplasm of prostate; Z13.6 Encounter for screening for cardiovascular disorders
CPT/HCPCS: 36415; 80053; 80061; 81003; 84153; 84443; 85025

== ENCOUNTER 2025-03-20 07:18 | Outpatient (REF) | payer OTHER, SELFPAY ==
--- OUTSIDE RECORDS SUMMARY | 2025-03-20 07:19 | XMS_ITS | Encounter Summary ---
Author Organization [facility] Address [address] [place] [address] Phone Care Team Providers Care Temperature Control Inspector Name Role Phone Kwan Ralph CHANGE RELEASE MANAGER Primary Care Provider + Encounter Details Date Type Department Care Team (Late st Contact Info) Description 08/20/2023 Procedure Pass [facility] Endoscopy Admitting Dept Virtual Department [address] [place] [address] Social History Tobacco Use Types Packs/Day Years [...] Recorded Sex Assigned at Not on file Legal Sex Male 9:27 PM EDT Gender Identity Not on file Sexual Orientation Not on file documented as of this encounter Plan of Treatment Not on file documented as of this encounter Visit Diagnoses Not on filedocumented in this encounter Care Teams Temperature Control Inspector Relationship Specialty Start Date End Date Kwan Ralph NP [employer] [place] [address] PCP - General Nurse Practitioner 02/02/23 documented as of this encounter Additional Source Comments The information contained in this document represents components of the legal health record. It is not the complete legal health record.[facility]
--- OUTSIDE RECORDS SUMMARY | 2025-03-20 07:19 | XMS_ITS | Clinical Summary ---
Author Organization [facility] Address [address] [place] [address] Phone Care Team Providers Care Boat Hand Name Role Phone Kwan Ralph NP Primary Care Provider + Allergies No known active allergies Medications multivitamin-min erals-lutein (CENTRUM SILVER) Tab Take 1 tablet by [...] 2021 INFLUENZA VACCINE (#1) 2024 COVID-19 VACCINE ( - 2023-2 5 season) 2024 Adult Td,Tdap [...] Melendez MD - 08/20/2023 7:27 AM EDT [facility] Patient Name: Farhat Platt Attending MD:: KATHY MELENDEZ MD, Procedure Date: 08/20/2023 7:27 AM Date of : 1975 Age: 48 Admit Type: Outpatient Gender: Male Room: [facility]NOTE 3[facility] Referring MD: Kwan Ralph Exam Type: Colonoscopy [...] monitored continuously. The Olympus adult variable colonoscope [id number] #[id number] was introduced through the anus and [...] 7:27 AM Procedure Code(s): --- Professional --- 54310, Colonoscopy, flexible; diagnostic, including collection of specimen(s) by brushing or washing, when performed (separateprocedure) --- Technical --- 45816, Colonoscopy, flexible; diagnostic, including collection of specimen(s) by brushing or washing, when performed (separateprocedure) Diagnosis Code(s): --- Professional --- Z12.11, Encounter for screening for malignantneoplasm of colon --- Technical --- Z12.11, Encounter for screening for malignantneoplasm of colon CPT copyright 2021 [employer]. All rights reserved. The codes documented in this report are preliminary and upon packing checker reviewmay be revised to meet current compliance requirements. Procedure Date: 08/20/2023 7:27:00 AM [address] [place] [address] Kwan Ralph NP GI PROCEDURE ORDERABLES Final Result * Outside LDL (10/16/2015) LDL - External 80 50 - 250 mg/ml Historical Provider LAB BLOOD ORDERABLES Debra l Result from Last 3 Months or Most Recently Relevant to Health Maintenance Insurance Neri MIRANDA [address] [place], [place] [address] [facility] Care Teams Boat Hand Relationship Specialty Start Date End Date Kwan Ralph NP [address] [place] [address] PCP - General Nurse Practitioner 02/02/23 Additional Source Comments The information contained in this document represents components of the legal health record. It is not the complete legal health record.[facility]
[2025-03-20 10:56] LABS: Osmolality, Serum 283 mosm/kg (281-305)
[2025-03-20 11:09] LABS: Alanine Aminotransferase 26 U/L (0-40); Albumin Level 4.5 g/dL (3.5-5.0); Anion Gap 13 (12-20); Aspartate Amino Transferase 25 U/L (5-37); Bilirubin Total 0.7 mg/dL (0.0-1.0); Blood Urea Nitrogen 15 mg/dL (9-16); Calcium 9.7 mg/dL (8.4-10.2); Carbon Dioxide 26 mmol/L (22-29); Chloride 102 mmol/L (96-108); Estimated Glomerular Filt Rate > 60; Glucose Random 90 mg/dL (60-115); Potassium 4.3 mmol/L (3.3-5.1); Sodium 137 mmol/L (135-145); Total Protein 7.4 g/dL (6.5-8.0)
[2025-03-20 12:51] LABS: Alkaline Phosphatase 77 U/L (39-117)
== END 2025-03-20 07:19 | disposition home or self-care (01) ==
LOC: HO.HMGCLDS 07:18
PROVIDERS: PCP Nurse Practitioner Family; Visit Provider Nurse Practitioner Family
DX: E87.1 Hypo-osmolality and hyponatremia (principal)
CPT/HCPCS: 36415; 80053; 83930